=== PATIENT | female | born 1980 | race Caucasian/White ===

== ENCOUNTER → 2019-09-05 | Outpatient (CLI) | payer OTHER ==
[~2019-09-05] MED LIST: MACROBID 1100 MG/CAP PO; PRENATAL1 TA1 PO
== END ==
LOC: DIA.ED 09:28
DX: O24.419 Gestational diabetes mellitus in pregnancy, unspecified control (principal)
CPT/HCPCS: G0108

== ENCOUNTER → 2019-09-18 | Outpatient (CLI) | payer OTHER | LOC: DIA.ED 09:26 | DX: O24.419 Gestational diabetes mellitus in pregnancy, unspecified control (principal) | CPT/HCPCS: G0108 ==

== ENCOUNTER 2019-11-05 08:28 | Inpatient (IN) | payer OTHER ==
[~2019-11-05] VITALS: Ht 157.5 cm; Wt 79.1 kg
[2019-11-06] VITALS (36 sets, daily range): BP systolic 125–182; BP diastolic 59–99; PULSE 67–125; TEMP 98.1–98.4
--- NOTE | 2019-11-06 07:05 | NUR ---
Pt arrives on unit ambulatory with spouse for inducton of labor. Denies regular ctx, LOF, and reports GFM. Changed into clean gown. EFM and toco applied. VS obtained. IV started in LF. Labs drawn. LR obtained. Admission assessment completed. Consents signed. Pt updated on POC. Safety reviewed. Bed locked in low position. Call light wihin reach. No questions or concerns at this time.
[2019-11-06 08:00] LABS: BASO % 0.3 % (0.0-2.0); EOS # 0.1 (0.0-0.7); EOS % 0.8 % (0-4.0); GRAN # 4.5 (1.4-6.5); GRAN % 68.7 % (42.2-75.2); HEMATOCRIT 38.3 % (37.0-47.0); HEMOGLOBIN 12.8 g/dl (12.5-16.0); LYMPH # 1.7 (1.2-3.4); LYMPH % 25.7 % (20.0-51.0); MEAN CELL VOLUME 87 fl (80.0-100.0); MEAN CORPUSCULAR HEMOGLOBIN 29 pg (27.0-31.0); MEAN CORPUSCULAR HGB CONC 33 g/dl (33.0-37.0); MEAN PLATELET VOLUME 10.6 fl (7.4-10.4); MONO # 0.3 (0.1-0.6); PLATELET COUNT 189 K/mm3 (130-400); RED BLOOD COUNT 4.42 M/mm3 (4.10-5.30); REDCELL DISTRIBUTION WIDTH-CV 14.8 % (11.5-14.5)
[2019-11-06 08:22] LABS: PH 6 (5-8); SQUAMOUS EPITHELIAL 0-2 /hpf; URINE APPEARANCE Clear; URINE BACTERIA Rare /hpf; URINE BILIRUBIN Negative (NEGATIVE); URINE BLOOD Negative (NEGATIVE); URINE COLOR Yellow; URINE GLUCOSE Negative (NEGATIVE); URINE KETONE Negative (NEGATIVE); URINE LEUKOCYTE ESTERASE Negative (NEGATIVE); URINE NITRATE Negative (NEGATIVE); URINE PROTEIN(semi-quant) Negative (NEGATIVE); URINE RBC None Seen /hpf; URINE UROBILINOGEN Negative (NEGATIVE); URINE WBC 0-2 /hpf
[2019-11-06 08:24] LABS: ALBUMIN 3.5 gm/dL (3.5-5.0); BILIRUBIN,TOTAL 0.2 mg/dL (0.0-1.0); CALCIUM 9.3 mg/dL (8.4-10.2); CREATININE, serum 0.41 (0.52-1.25); POTASSIUM 3.7 mmol/L (3.4-5.0); TOTAL PROTEIN 6.7 gm/dL (6.4-8.2)
[2019-11-06 08:59] LABS: COLLECTION METHOD CLEAN CATCH
--- NOTE | 2019-11-06 10:05 | NUR ---
Dr. Roa on unit. Reviews FHR strip. 1105-Elevated BP. Orders for hydralazine 10mg IV now. 1128-Provider remains on unit. Reviews FHR strip.
--- NOTE | 2019-11-06 10:22 | NUR ---
Pt sitting at EOB for epidural placement. Difficulty tracing FHR due to maternal postion. RN at bedside adjusting monitors. FHR audible.
--- NOTE | 2019-11-06 13:45 | NUR ---
Late deceleration noted. Provider at bedside. SVE C/-[address] Roa. Pt prepped for delivery. 1351- of viable female attended by Dr. Roa. Cord clamped x 2 and cut from umbilicus. dried and placed on mother's abdomen. Care of infant to Stormy Hubbard RN. Apgars 8/9/9. Cord gasses collected. Placenta sent to pathology. 1400- of placenta. Pitocin bolus infusing per protocol. Fundus firm at umbilicus. Bleeding WNL. First degree laceration repaired per provider. Pericare performed. Ice pack applied. Pt updated on POC. Bed locked in low position. Call light within reach. No questions or concerns at this time.
[2019-11-07] VITALS: BP 140/80; PULSE 78; TEMP 98.2
[2019-11-07 07:15] VITALS: BP 149/78; PULSE 88; TEMP 98
[2019-11-07 12:25] VITALS: BP 132/89; BP 148/91; PULSE 100; PULSE 93
[2019-11-07] MEDS ORDERED: IBU800 M1 PO (13:02)
== END 2019-11-07 16:00 | disposition home or self-care (01) | DRG 807 ==
LOC: LDR 11-06 07:05 → OB 11-06 07:05 → LDR 11-06 08:28 → OB 11-06 17:00
PROVIDERS: ADMIT Student in an Organized Health Care Education/Training Program
PROC: 10E0XZZ Delivery of Products of Conception, External Approach (ICD-10-PCS; principal; 2019-11-06)
PROC: 3E033VJ Introduction of Other Hormone into Peripheral Vein, Percutaneous Approach (ICD-10-PCS; 2019-11-06)
PROC: 0HQ9XZZ Repair Perineum Skin, External Approach (ICD-10-PCS; 2019-11-06)
DX: O13.4 Gestational [pregnancy-induced] hypertension without significant proteinuria, complicating childbirth (principal); Z37.0 Single live birth; O99.214 Obesity complicating childbirth; E66.9 Obesity, unspecified; O24.429 Gestational diabetes mellitus in childbirth, unspecified control; O76 Abnormality in fetal heart rate and rhythm complicating labor and delivery; O70.0 First degree perineal laceration during delivery; Z3A.39 39 weeks gestation of pregnancy
CPT/HCPCS: J0360; J2590; J7120